=== PATIENT | female | born 1965 | race Caucasian/White ===

== ENCOUNTER 2021-07-20 14:44 | Emergency (ER) | payer OTHER ==
[~2021-07-20] VITALS: Ht 154.9 cm; Wt 71.0 kg
[2021-07-20] MEDS ORDERED: IBUPROFEN 400MG TABLET PO ONE (15:30)
[2021-07-20] MEDS ORDERED: ACETAMINOPHEN 325MG TABLET PO ONE (15:30)
[2021-07-20] MEDS ORDERED: HYDROCODONE/ACETAMINOPHEN 5/325MG TABLET PO ONE (15:30)
[2021-07-20] MEDS ORDERED: LIDOCAINE 5% PATCH TOP SCH (15:30)
[2021-07-20 16:46] VITALS: BP 169/92
[2021-07-20] MEDS ORDERED: METH-773 MT (17:48)
[2021-07-20] MEDS ORDERED: HYDR-4001 MT (17:48)
== END 2021-07-20 18:15 | disposition home or self-care (01) ==
LOC: ER 14:44
DX: S16.1XXA Strain of muscle, fascia and tendon at neck level, initial encounter (principal); V49.49XA Driver injured in collision with other motor vehicles in traffic accident, initial encounter; Y93.89 Activity, other specified; Y92.89 Other specified places as the place of occurrence of the external cause; Y99.8 Other external cause status; M79.18 Myalgia, other site; I10 Essential (primary) hypertension
CPT/HCPCS: 70486; 73060; 73562; 99284